=== PATIENT | female | born 1950 | race Caucasian/White ===

== ENCOUNTER 2017-07-09 07:32 | Day surgery (SDC) | payer MEDICARE, BC ==
[2017-07-09] MEDS ORDERED: PROPOFOL 500 MG/50 ML EMU IV ONE (07:53)
[2017-07-09] MEDS ORDERED: LIDOCAINE HCL 1% MPF SOL ONE (07:53)
[2017-07-09 08:06] VITALS: TEMP 97.2
[2017-07-09] MEDS ORDERED: PROPOFOL 10 MG/ML EMU IV ONE (09:30)
[2017-07-09] MEDS ORDERED: GLYCOPYRROLATE 0.2 MG/ML SOL ONE (09:30)
[2017-07-09 10:13] LABS: BASOPHILS % (AUTO) 0 % (0-3); EOSINOPHILS % (AUTO) 1 % (0-9); HEMATOCRIT 36 % (35-47); MEAN CORPUSCULAR HGB CONC 36.2 gm/dl (32.0-36.0); MEAN CORPUSCULAR VOLUME 89 fL (81-99); MONOCYTES % (AUTO) 7.8 % (0-12); NEUTROPHILS % (AUTO) 67.4 % (37-80)
[2017-07-09 10:18] VITALS: RESP 20
[2017-07-09 10:22] LABS: CALCIUM 8.6 mg/dl (8.5-10.1)
[2017-07-09 10:36] VITALS: BP 156/59; PULSE 67; O2SAT 96
[2017-07-09] MEDS ORDERED: ONDANSETRON HCL 4 MG/2 ML SOL ONE (10:42)
== END 2017-07-09 11:35 | disposition other institution (70) | DRG 951 ==
LOC: SURG 07:32
PROVIDERS: ATTEND Surgery
DX: Z12.11 Encounter for screening for malignant neoplasm of colon (principal); D12.2 Benign neoplasm of ascending colon; Z80.0 Family history of malignant neoplasm of digestive organs; Z86.010 Personal history of colon polyps; D12.4 Benign neoplasm of descending colon; K57.30 Diverticulosis of large intestine without perforation or abscess without bleeding; K52.9 Noninfective gastroenteritis and colitis, unspecified
CPT/HCPCS: 36415; 74177; 80048; 85025; J2405; J7643; Q9967; J2001; J2704

== ENCOUNTER 2018-03-04 01:59 | Inpatient (IN) | payer BC, MEDICARE ==
[2018-03-04] MEDS ORDERED: METOPROLOL TARTRATE 5 MG/5 ML SOL IV ONE ×2 (02:08→02:11)
[2018-03-04 02:26] LABS: BASOPHILS % (AUTO) 0 % (0-3); EOSINOPHILS % (AUTO) 1 % (0-9); HEMATOCRIT 41 % (35-47); HEMOGLOBIN 14.5 gm/dl (12.0-15.5); LYMPHOCYTES % (AUTO) 21.6 % (10-50); MEAN CORPUSCULAR HEMOGLOBIN 31.8 pg (27.0-32.0); MEAN CORPUSCULAR HGB CONC 35.1 gm/dl (32.0-36.0); MEAN CORPUSCULAR VOLUME 91 fL (81-99); NEUTROPHILS % (AUTO) 70.8 % (37-80)
[2018-03-04] MEDS ORDERED: LABETALOL HYDROCHLORIDE 5 MG/ML SOL IV ONE ×2 (02:27→02:34)
[2018-03-04] MEDS ORDERED: FUROSEMIDE 40 MG SOL ONE ×2 (02:27→09:41)
[2018-03-04] MEDS ORDERED: FUROSEMIDE 20mg SOL IV ONE (02:30)
[2018-03-04 02:41] LABS: BLOOD UREA NITROGEN 28 mg/dl (7-18); CALCIUM 9.1 mg/dl (8.5-10.1); CHLORIDE 107 mMol/L (98-107); CREATININE 0.84 mg/dl (0.60-1.00); GLOM FILT RATE 68 mL/min (>60); GLUCOSE 158 mg/dl (74-106); POTASSIUM 3.7 mMol/L (3.5-5.1); SODIUM 140 mMol/L (136-145); TROP I < 0.017 ng/ml (0.000-0.056)
[2018-03-04] MEDS ORDERED: LABETALOL HYDROCHLORIDE 100 MG TAB ONE (03:11)
[2018-03-04] MEDS ORDERED: LABETALOL HYDROCHLORIDE 100 MG TAB PO SCH (03:15)
[2018-03-04] MEDS ORDERED: FUROSEMIDE 20mg SOL IV SCH (09:00)
[2018-03-04] MEDS ORDERED: ENOXAPARIN 40 MG SOL SC SCH (09:00)
[2018-03-04] MEDS ORDERED: SIMVASTATIN 20 MG TAB PO SCH ×2 (09:15→21:00)
[2018-03-04] MEDS: METOPROLOL TARTRATE 25 MG TAB PO SCH ×2 (09:36→20:41)
[2018-03-04] MEDS: ASPIRIN EC 81 MG PO SCH (09:36)
[2018-03-04] MEDS: FUROSEMIDE 20mg SOL IV SCH ×2 (09:43→13:49)
[2018-03-04 14:02] LABS: BLOOD UREA NITROGEN 26 mg/dl (7-18); CALCIUM 9.4 mg/dl (8.5-10.1); CARBON DIOXIDE 29.9 mEq/L (21-32); CHLORIDE 104 mMol/L (98-107); CREATININE 0.98 mg/dl (0.60-1.00); GLOM FILT RATE 57 mL/min (>60); GLUCOSE 135 mg/dl (74-106); POTASSIUM 3.6 mMol/L (3.5-5.1); SODIUM 140 mMol/L (136-145); TROP I < 0.017 ng/ml (0.000-0.056)
[2018-03-04] MEDS ORDERED: WARFARIN SODIUM 2.5 MG TAB PO SCH (20:00)
[2018-03-04] MEDS: ENOXAPARIN 80 MG SOL SC SCH (20:42)
[2018-03-04 21:52] VITALS: O2SAT 95
[2018-03-05] MEDS ORDERED: SODIUM CHLORIDE 0.9% FLUSH 10 ML SOL IV SCH (04:00)
[2018-03-05 08:00] VITALS: BP 126/70; PULSE 77; RESP 14; TEMP 97.8
[2018-03-05] MEDS: ASPIRIN EC 81 MG PO SCH (09:05)
[2018-03-05] MEDS: FUROSEMIDE 20mg SOL IV SCH (09:06)
[2018-03-05] MEDS: ENOXAPARIN 80 MG SOL SC SCH (09:06)
[2018-03-05] MEDS: METOPROLOL TARTRATE 25 MG TAB PO SCH (09:06)
[2018-03-05] MEDS ORDERED: PNEUMOC 13-VAL CONJ-DIP CRM/PF 0.5 ML SYRINGE IM ONE (10:33)
[2018-03-05] MEDS ORDERED: WARFARIN SODIUM 5 MG TAB PO SCH (18:00)
[2018-03-05] MEDS ORDERED: WARFARIN SODIUM 2.5 MG TAB PO SCH (20:00)
== END 2018-03-05 12:47 | disposition home or self-care (01) | DRG 194 ==
LOC: ED 01:59 → ACUTE CARE 03:50
PROVIDERS: ADMIT Family Medicine; ATTEND Family Medicine
DX: I50.9 Heart failure, unspecified (principal); I48.91 Unspecified atrial fibrillation; R06.02 Shortness of breath; Z72.0 Tobacco use
CPT/HCPCS: 36415; 71045; 80048; 83880; 84484; 85025; 90670; 93005; 93012; 93306; 94150; 94660; 94762; 96374; 96375; 99222; 99285; J1650; J1940; A9270-GY; G0008; J3490

== ENCOUNTER 2018-11-21 17:29 | Emergency (ER) | payer MEDICARE, BC ==
[2018-11-21] MEDS ORDERED: SODIUM CHLORIDE 0.9% FLUSH 10 ML SOL IV PRN (17:46)
[2018-11-21] MEDS ORDERED: NITROGLYCERIN 0.4 MG TAB SL PRN (17:46)
[2018-11-21 17:58] LABS: BASOPHILS % (AUTO) 0 % (0-3); EOSINOPHILS % (AUTO) 1 % (0-9); HEMATOCRIT 37 % (35-47); HEMOGLOBIN 12.3 gm/dl (12.0-15.5); LYMPHOCYTES % (AUTO) 17.1 % (10-50); MEAN CORPUSCULAR HEMOGLOBIN 31.5 pg (27.0-32.0); MEAN CORPUSCULAR HGB CONC 33.4 gm/dl (32.0-36.0); MEAN CORPUSCULAR VOLUME 94 fL (81-99); MONOCYTES % (AUTO) 8.8 % (0-12); NEUTROPHILS % (AUTO) 72.7 % (37-80)
[2018-11-21 18:10] LABS: INR 2.64 (0.86-1.12)
[2018-11-21 18:15] LABS: ALBUMIN 3.5 gm/dl (3.4-5.0); ALKALINE PHOSPHATASE 74 IU/L (46-116); ALT 17 IU/L (14-63); AST 16 IU/L (15-37); BILIRUBIN,TOTAL 0.3 mg/dl (0.2-1.0); BLOOD UREA NITROGEN 24 mg/dl (7-18); CALCIUM 8.3 mg/dl (8.5-10.1); CARBON DIOXIDE 28.3 mEq/L (21-32); CHLORIDE 104 mMol/L (98-107); CREATINE KINASE 60 U/L (26-192); CREATININE 0.88 mg/dl (0.60-1.00); GLUCOSE 107 mg/dl (74-106); POTASSIUM 3.7 mMol/L (3.5-5.1); SODIUM 142 mMol/L (136-145); TOTAL PROTEIN 7.7 gm/dl (6.4-8.2); TROP I < 0.017 ng/ml (0.000-0.056)
[2018-11-21 18:31] VITALS: TEMP 99; O2SAT 97
[2018-11-21 19:02] VITALS: BP 158/87; PULSE 90; RESP 32
== END 2018-11-21 19:09 | disposition home or self-care (01) | DRG 392 ==
LOC: ED 17:29
DX: K21.9 Gastro-esophageal reflux disease without esophagitis (principal); Z79.01 Long term (current) use of anticoagulants; E78.5 Hyperlipidemia, unspecified
CPT/HCPCS: 36415; 71045; 80053; 82550; 84484; 85025; 85610; 85730; 93005; 99283; 99284

== ENCOUNTER 2019-04-01 09:30 | Outpatient (CLI) | payer MEDICARE, BC ==
[2018-11-21 18:31] VITALS: O2SAT 97
== END 2019-04-01 09:31 | disposition home or self-care (01) | DRG 310 ==
LOC: CONVCARE 09:30
PROVIDERS: ATTEND Internal Medicine Cardiovascular Disease
DX: I48.91 Unspecified atrial fibrillation (principal); Z79.01 Long term (current) use of anticoagulants; I50.9 Heart failure, unspecified; I35.8 Other nonrheumatic aortic valve disorders; I05.0 Rheumatic mitral stenosis
CPT/HCPCS: 93005